=== PATIENT | male | born 1970 | race Caucasian/White ===

== ENCOUNTER 2018-05-30 13:38 | Emergency (ER) | payer OTHER, SELFPAY ==
[2018-05-30 13:48] VITALS: BP 150/86; PULSE 78; RESP 18; TEMP 37.1; O2SAT 97
--- NOTE | 2018-05-30 14:28 | ED_ITS ---
HPI - Allergic Reaction General Chief complaint: Allergic Reaction Stated complaint: BEE STING Time Seen by Provider: 05/30/18 14:21 Source: patient Mode of arrival: ambulatory Limitations: no limitations History of Present Illness HPI narrative: The patient severed a bee sting to the mid back about 11:00 a.m. this morning. He has a history of bee sting anaphylaxis. He did not have an EpiPen immediately available. He went to see his physician in [place], Dr. Wheatley. There he received an injection from an EpiPen, as well as Solu-Medrol 125 mg IV. After discussion he also received Benadryl 50 mg p.o.. He has a prior history of anaphylaxis, including urticaria and airway tightening. Today he has experienced no rash, no airway tightness, no dyspnea and no wheezing. He arrives here by POV, refusing transport. He remains asymptomatic. Related Data Home Medications Medication Instructions Recorded Confirmed omeprazole 40 mg PO QDAY #0 02/11/11 05/30/18 fenofibrate nanocrystallized 145 mg PO QPM #0 11/12/17 05/30/18 [Tricor] irbesartan-hydrochlorothiazide 1 tab PO QDAY #0 11/12/17 05/30/18 metformin 1,000 mg PO BIDCC #0 11/12/17 05/30/18 Fish Oil 1 cap PO DAILY 05/30/18 05/30/18 canagliflozin [Invokana] 300 mg PO DAILY 05/30/18 05/30/18 liraglutide [Victoza 3-Jose] 1 dose SUB-Q QPM 05/30/18 05/30/18 Previous Rx's Medication Instructions Recorded epinephrine [EpiPen 2-Jose] 0.3 mg IM Q10M PRN #2 each 05/30/18 Allergies Allergy/AdvReac Type Severity Reaction Status Date / Time aspirin [ASPIRIN] Allergy Severe Unverified 01/29/18 11:58 venom-honey bee Allergy Severe Unverified 01/29/18 11:58 [BEE VENOM (HONEY BEE)] Review of Systems Review of Systems All systems reviewed & are unremarkable except as noted in HPI and below Constitutional Denies chills, Denies fever(s), Denies lethargy and Denies weakness Eyes Denies change in vision and Denies eye discharge ENT Ears, Nose, Mouth, and Throat: Denies change in voice, Denies dizziness, Denies neck pain, Denies sore throat, Denies throat swelling and Denies tongue swelling Cardiovascular Denies chest pain, Denies rapid heart rate, Denies irregular heart rhythm, Denies lightheadedness, Denies palpitations, Denies dyspnea and Denies dyspnea on exertion Respiratory Denies cough, Denies dyspnea, Denies dyspnea on exertion, Denies stridor and Denies wheezing Gastrointestinal Gastrointestinal: Denies abdominal pain, Denies change in bowel habits, Denies diarrhea, Denies nausea and Denies vomiting Musculoskeletal Denies neck pain Integumentary/Breasts Denies pruritus, Denies erythema, Denies rash and Denies wounds Neurologic Denies confusion, Denies dizziness and Denies weakness Psychiatric Denies confusion Endocrine Denies palpitations Allergic/Immunologic Denies throat swelling, Denies tongue swelling and Denies wheezing COUNTS INCLUDE 234 BEDS AT THE [facility] Medical History Bee sting allergy (Acute) Exam Initial Vital Signs Initial Vital Signs: Vital Signs Temperature 98.8 F 05/30/18 13:48 Pulse Rate 78 05/30/18 13:48 Respiratory Rate 18 05/30/18 13:48 Blood Pressure 150/86 H 05/30/18 13:48 Pulse Oximetry 97 05/30/18 13:48 Const General: healthy appearing, comfortable and well developed Nutritional Appearance: well nourished Orientation: alert, awake, oriented x3 and not confused [facility] Head: normocephalic and atraumatic Mouth: oral mucosae normal and moist mucous membranes Throat: posterior oropharynx normal, tonsils normal and uvula midline Eyes General: appearance normal, both eyes and all related structures Conjunctivae: conjunctivae normal Sclera: sclerae normal Pupils: PERRL EOM: EOM intact bilaterally Course Hospital Course: The patient was appropriately managed prior to arrival here. He is asymptomatic upon arrival, he remains asymptomatic after period of observation. He will be discharged with steroids, epinephrine, and Benadryl. Vital Signs - 8 hr 05/30/18 13:48 05/30/18 14:47 Temperature 98.8 F Pulse Rate 78 73 Respiratory Rate 18 Blood Pressure 150/86 H Blood Pressure [Left Arm] 143/86 H Pulse Oximetry 97 98 Discharge Plan Departure Patient Disposition: Home, Self-Care Clinical Impression: Bee sting allergy Instructions: Anaphylaxis Activity Restrictions/Additional Instructions: Prednisone 40 mg daily for 5 days. Benadryl every 4 hr for itching or rash. Return here if symptoms worsen. I will prescribe EpiPen, keep this with you when out and about during spring and summer. Return here as needed. Prescriptions: New epinephrine [EpiPen 2-Jose] 0.3 mg/0.3 mL auto-injector 0.3 mg IM Q10M PRN (Reason: anaphylaxis) Qty: 2 RF: 1 No Action omeprazole 40 MG capsule,delayed release(DR/EC) 40 mg PO QDAY Qty: 0 RF: 0 irbesartan-hydrochlorothiazide 150 MG/12.5 MG tablet 1 tab PO QDAY Qty: 0 RF: 0 metformin 1,000 MG tablet 1,000 mg PO BIDCC Qty: 0 RF: 0 fenofibrate nanocrystallized [Tricor] 145 MG tablet 145 mg PO QPM Qty: 0 RF: 0 liraglutide [Victoza 3-Jose] 0.6 mg/0.1 mL (18 mg/3 mL) pen injector 1 dose Sub-Q QPM RF: 0 canagliflozin [Invokana] 300 mg tablet 300 mg PO DAILY RF: 0 Fish Oil 1 cap PO DAILY RF: 0
[2018-05-30 14:47] VITALS: BP 143/86; PULSE 73; O2SAT 98
[2018-05-30 15:13] VITALS: BP 150/83; PULSE 97; O2SAT 90
== END 2018-05-30 15:23 | disposition home or self-care (01) ==
PROVIDERS: Emergency Provider Emergency Medicine; Family Provider Family Medicine; PCP Family Medicine
DX: T63.411A Toxic effect of venom of centipedes and venomous millipedes, accidental (unintentional), initial encounter (principal)
CPT/HCPCS: 99282

== ENCOUNTER → 2022-08-06 11:31 | Outpatient (CLI) | payer OTHER, SELFPAY ==
--- NOTE | 2022-08-06 11:32 | DI.RAD.S_ITS ---
PROCEDURE: XR ELBOW LT MIN 3V INDICATIONS: Left elbow pain TECHNIQUE: 3 views of the elbow were acquired. COMPARISON: None. FINDINGS: Bones: No fractures or dislocations. No suspicious bony lesions. Soft tissues: No posterior elbow joint effusion. No suspicious soft tissue calcifications. IMPRESSION: No fracture identified. Dictated by: Yassine Colunga M.D. on 08/06/2022 at 16:05 Approved by: Yassine Colunga M.D. on 08/06/2022 at 16:06
== END ==
PROVIDERS: Family Provider Family Medicine; PCP Physician Assistant Medical; Referring Provider Nurse Practitioner Family; Visit Provider Nurse Practitioner Family
DX: M25.522 Pain in left elbow (principal)
CPT/HCPCS: 73080

== ENCOUNTER → 2024-06-03 15:03 | Outpatient (CLI) | payer OTHER, SELFPAY ==
--- NOTE | 2024-06-03 16:58 | DI.NM.S_ITS ---
DATE OF SERVICE: 06/03/2024 PROCEDURE: Exercise stress test. INDICATIONS: Coronary artery calcification, underlying diabetes mellitus, hyperlipidemia, hypertension. CARDIAC STRESS: Patient underwent exercise stress test under the supervision of an attending staff using standard [place] protocol. He walked on [place] protocol for 6 minutes and 15 seconds, achieved maximum heart rate of 118, which was 72% of target heart rate, 7 METS of workload, ANKIT positive 31%. He could not walk further because of bilateral hip pain. Resting blood pressure 132/78 and peak blood pressure 178/92 mmHg. Baseline rhythm sinus. During stress, no convincing ischemic changes seen. No significant arrhythmias. No chest discomfort. Had shortness of breath. CONCLUSION: Sub maximal exercise stress test negative for inducible ischemia. Could not walk further because of bilateral hip pain. Walked on [place] protocol for 6 minutes and 15 seconds. ANKIT positive 31%. Normal blood pressure response. No significant arrhythmias. No chest pain. Also had shortness of breath. Correlate clinically. Nikita Cuadra - ADELAIDE/seema/BERTRAND doc#: [id number]/job#: [id number] dd: 06/03/2024 16:41:00 dt: 06/03/2024 16:50:00 DICTATING MD/COPIES TO: Anselmo Lu MD COPIES MNE: ROGELIO;
== END ==
LOC: RAD 15:04
PROVIDERS: Family Provider Family Medicine; PCP Physician Assistant Medical; Referring Provider Internal Medicine Cardiovascular Disease; Visit Provider Internal Medicine Cardiovascular Disease
DX: I25.10 Atherosclerotic heart disease of native coronary artery without angina pectoris (principal); I25.84 Coronary atherosclerosis due to calcified coronary lesion; E11.9 Type 2 diabetes mellitus without complications; E78.5 Hyperlipidemia, unspecified; I10 Essential (primary) hypertension
CPT/HCPCS: 93017